=== PATIENT | female | born 1965 | race African-American/Black ===

== ENCOUNTER 2016-10-18 10:24 | Emergency (ER) | payer OTHER ==
[2016-10-18 11:03] VITALS: BMI 47.7
--- NOTE | 2016-10-18 11:03 | PDOC ---
Attending Attestation - Resident Resident Name: Emeka Young - ED Attending Attestation I have performed the following: I have examined & evaluated the patient, The case was reviewed & discussed with the resident, I agree w/resident's findings & plan, Exceptions are as noted - HPI HPI: 51 yo F history HIV, asthma, MICHAEL, HTN, lumbar herniated discs presents with 3 day history of progressively worsening RLQ abd pain radiating to groin and upper thigh. She states that thte pain is sharp, worse with twisting movements of torso, weight bearing on the R leg, and movement of the leg. Denies GI symptoms- no N/V/D. No f/c, no recent illness. She denies any pain in the buttocks. No numbness or weakness in the extremities. No prior similar symptoms. No recent trauma. - Physicial Exam PE: GENERAL: Awake, alert, and fully oriented, in no acute distress. Appears uncomfortable. HEAD: No signs of trauma EYES: PERRLA, EOMI, sclera anicteric, conjunctiva clear ENT: Auricles normal inspection, hearing grossly normal, nares patent, oropharynx clear without exudates. Moist mucosa NECK: Normal ROM, supple, no lymphadenopathy, JVD, or masses LUNGS: Breath sounds equal, clear to auscultation bilaterally. No wheezes, and no crackles HEART: Regular rate and rhythm, normal S1 and S2, no murmurs, rubs or gallops ABDOMEN: Soft, +RLQ tenderness with guarding, normoactive bowel sounds. No guarding, no rebound. No masses. Also with R groin/upper thigh tenderness EXTREMITIES: Normal range of motion, no edema. No clubbing or cyanosis. No cords , erythema, or tenderness NEUROLOGICAL: Cranial nerves II through XII grossly intact. Normal speech, normal gait SKIN: Warm, Dry, normal turgor, no rashes or lesions noted. - Medical Decision Making Etiology of pain is unclear. DDx includes lumbar radiculopathy, acute appendicitis (with psoas sign), nephrolithiasis, RLE DVT, or possibly a femoral hernia. Will obtain labs, DVT study, and CT abd to further evaluate.
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
[2016-10-18] MEDS ORDERED: morphine CARPU-JECT 4 MG/1 ML DISP.SYRIN IVPUSH ONE (11:36)
[2016-10-18] MEDS ORDERED: morphine CARPU-JECT 4 MG/1 ML DISP.SYRIN ONE (11:53)
[2016-10-18 12:13] LABS: URINE APPEARANCE CLEAR; URINE BILIRUBIN NEGATIVE (NEGATIVE); URINE BLOOD NEGATIVE (NEGATIVE); URINE COLOR LTYELLOW; URINE GLUCOSE (UA) NEGATIVE (NEGATIVE); URINE KETONE NEGATIVE (NEGATIVE); URINE LEUK ESTERASE NEGATIVE (NEGATIVE); URINE NITRITE NEGATIVE (NEGATIVE); URINE PROTEIN NEGATIVE (NEGATIVE); URINE UROBILINOGEN NEGATIVE E.U./dl (0.2-1.0)
[2016-10-18 12:24] LABS: BASOPHIL 0.6 % (0-2.0); EOSINOPHIL 1.5 % (0-4.5); MCH 29.4 pg (25.7-33.7); MCHC 32.1 g/dl (32.0-36.0); MEAN CELL VOLUME 91.6 fl (80-96); MEAN PLT VOLUME 8.3 fl (7.5-11.1); NEUTROPHILS 59.9 % (42.8-82.8); PLATELET COUNT 253 K/MM3 (134-434); RDW 16.9 % (11.6-15.6); WHITE BLOOD COUNT 8.3 K/mm3 (4.0-10.0)
[2016-10-18 12:40] LABS: ALBUMIN 3.8 g/dl (3.4-5.0); ALK PHOS 84 U/L (45-117); ANION GAP 7 (8-16); BILIRUBIN,TOTAL 0.3 mg/dL (0.2-1.0); CALCIUM 8.3 mg/dL (8.5-10.1); CO2 28 mmol/L (21-32); COCKROFT - GAULT 136.9775; CREATININE 0.9 mg/dL (0.55-1.02); GLUCOSE,RANDOM 120 mg/dL (74-106); SGOT/AST 12 U/L (15-37); SGPT/ALT 17 U/L (12-78); TOT PROT 7.7 g/dl (6.4-8.2)
[2016-10-18 15:35] VITALS: BP 101/53; PULSE 84; TEMP 98.1
== END 2016-10-18 16:00 | disposition home or self-care (01) ==
LOC: JER 10:24
PROC: 3E033NZ Introduction of Analgesics, Hypnotics, Sedatives into Peripheral Vein, Percutaneous Approach (ICD-10-PCS; principal; 2016-10-18)
DX: R10.31 Right lower quadrant pain (principal); I10 Essential (primary) hypertension; J45.909 Unspecified asthma, uncomplicated; M51.26 Other intervertebral disc displacement, lumbar region; Z21 Asymptomatic human immunodeficiency virus [HIV] infection status; F17.210 Nicotine dependence, cigarettes, uncomplicated
CPT/HCPCS: 36415; 74177-TC; 80053; 81003; 85025; 93971-TC; 96374; 99282-25

== ENCOUNTER 2017-08-10 23:10 | Emergency (ER) | payer OTHER ==
[2017-08-10 23:35] VITALS: BP 127/104; PULSE 92; TEMP 98.3; BMI 50.6
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
[2017-08-10] MEDS ORDERED: IBUPROFEN 600 MG TABLET (FP) PO ONE (23:58)
[2017-08-11] MEDS ORDERED: IBUPROFEN 600 MG TABLET (FP) PO ONE (00:08)
== END 2017-08-11 01:21 | disposition home or self-care (01) ==
LOC: JER 23:10
DX: S46.811A Strain of other muscles, fascia and tendons at shoulder and upper arm level, right arm, initial encounter (principal); X50.0XXA Overexertion from strenuous movement or load, initial encounter; Y93.F2 Activity, caregiving, lifting; Y92.038 Other place in apartment as the place of occurrence of the external cause; I10 Essential (primary) hypertension; Z21 Asymptomatic human immunodeficiency virus [HIV] infection status; Z86.59 Personal history of other mental and behavioral disorders; Z87.42 Personal history of other diseases of the female genital tract
CPT/HCPCS: 72050-TC-FY; 99281-25

== ENCOUNTER 2018-05-13 11:18 | Emergency (ER) | payer OTHER ==
[2018-05-13 11:25] VITALS: BP 141/81; PULSE 66; TEMP 98.5; BMI 52.0
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
[2018-05-13] MEDS ORDERED: CEPHALEXIN MONOHYDRATE 500 MG CAPSULE (UD) PO ONE (12:29)
[2018-05-13] MEDS ORDERED: CEPHALEXIN MONOHYDRATE 500 MG CAPSULE (UD) ONE (12:38)
[2018-05-13] MEDS ORDERED: IBUPROFEN 600 MG TABLET (FP) PO ONE ×2 (12:47)
== END 2018-05-13 12:56 | disposition home or self-care (01) ==
LOC: JERFT 11:18
DX: L02.512 Cutaneous abscess of left hand (principal); L03.114 Cellulitis of left upper limb
CPT/HCPCS: 99281-25

== ENCOUNTER 2018-08-27 07:23 | Day surgery (SDC) | payer OTHER ==
[2018-08-26 12:51] VITALS: BMI 48.3
[2018-08-27 09:36] VITALS: TEMP 97
[2018-08-27 10:00] VITALS: PULSE 79
[2018-08-27 10:19] VITALS: BP 122/79
--- NOTE | 2018-08-28 18:34 | PATH ---
Surgical Pathology Report Patient Name: SHIVA SHINE [facility]. Rec. #: [id number] /Age/Gender: 1965 (Age: 53) / F Account: [id number] Location: U-ENDOSCOPY Taken: 08/27/2018 Received: 08/27/2018 Reported: 08/28/2018 Physicians: Silverio Warner M.D. Specimen(s) Received A: BX ILEOCECAL VALVE EROSIONS B: BX PROXIMAL SIGMOID EROSIONS Clinical History Screening colonoscopy Postoperative diagnosis: Erosions at ileocecal valve and proximal sigmoid Final Diagnosis A. ILEOCECAL VALVE, BIOPSY: COLONIC MUCOSA WITH FOCAL ACTIVE COLITIS. SEE COMMENT. B. PROXIMAL SIGMOID COLON, BIOPSY: COLONIC MUCOSA WITH FOCAL EROSION. Comment: Findings are non-specific. Although acute self-limited colitis is a consideration, among other conditions, the possibility of early inflammatory bowel disease cannot be completely excluded. Suggest clinical/radiologic correlation. Electronically Signed Yi White M.D. Gross Description A. Received in formalin, labeled "biopsy ileocecal valve" are 2 moreno, irregular portions of soft tissue averaging 0.2 cm. in greatest dimension. The specimens are submitted in toto in one cassette. B. Received in formalin, labeled "biopsy proximal sigmoid" is a moreno, irregular portion of soft tissue measuring 0.3 cm. in greatest dimension. The specimen is submitted in toto in one cassette. 08/27/2018 saudi08/27/2018
== END 2018-08-27 10:15 | disposition home or self-care (01) ==
LOC: JASU-ENDO 07:23
PROVIDERS: ATTEND Internal Medicine Gastroenterology
PROC: 0DBN8ZX Excision of Sigmoid Colon, Via Natural or Artificial Opening Endoscopic, Diagnostic (ICD-10-PCS; 2018-08-27)
PROC: 0DBC8ZX Excision of Ileocecal Valve, Via Natural or Artificial Opening Endoscopic, Diagnostic (ICD-10-PCS; principal; 2018-08-27 08:00)
DX: Z12.11 Encounter for screening for malignant neoplasm of colon (principal); K63.3 Ulcer of intestine
CPT/HCPCS: 84703; 88305-TC

== ENCOUNTER 2018-10-26 09:48 | Emergency (ER) | payer OTHER ==
[2018-10-26 10:07] VITALS: BP 123/81; PULSE 83; TEMP 98.2; BMI 47.7
[2018-10-26] MEDS ORDERED: CYCLOBENZAPRINE HCL 10 MG TABLET (FP) PO ONE (11:01)
[2018-10-26] MEDS ORDERED: CYCLOBENZAPRINE HCL 10 MG TABLET (FP) ONE (11:06)
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
== END 2018-10-26 11:12 | disposition home or self-care (01) ==
LOC: JERFT 09:48
DX: M54.5 Low back pain (principal); H92.01 Otalgia, right ear; G89.29 Other chronic pain; I10 Essential (primary) hypertension; E78.5 Hyperlipidemia, unspecified; Z21 Asymptomatic human immunodeficiency virus [HIV] infection status
CPT/HCPCS: 99281-25

== ENCOUNTER 2018-12-21 18:22 | Emergency (ER) | payer OTHER ==
--- NOTE | 2018-12-21 18:38 | PDOC ---
Rapid Medical Evaluation Time Seen by Provider: 12/21/18 18:34 Medical Evaluation: Allergies Allergy/AdvReac Type Severity Reaction Status Date / Time No Known Allergies Allergy Verified 10/26/18 10:04 12/21/18 18:34 This patient had brief in-person evaluation in triage cc: s/p fall complaining of pain to right hip and back after losing her balance yesterday while walking on the street. Denies head strike PE: NAD unlabored breathing received in wheelchair orders: hip xray This patient will proceed to the Ed for further evaluation Discharge Disposition - Diagnosis Hip pain - Referrals - Patient Instructions - Post Discharge Activity
[2018-12-21 18:40] VITALS: BP 117/71; PULSE 86; TEMP 98.4; BMI 49.5
[2018-12-21] MEDS ORDERED: LIDOCAINE 5% TOPICAL PATCH TP ONE (19:43)
[2018-12-21] MEDS ORDERED: KETOROLAC TROMETHAMINE 60 MG/2 ML VIAL IM ONE (19:43)
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
[2018-12-21] MEDS ORDERED: LIDOCAINE 5% TOPICAL PATCH ONE (19:58)
[2018-12-21] MEDS ORDERED: KETOROLAC TROMETHAMINE 60 MG/2 ML VIAL ONE (19:58)
[2018-12-21] MEDS ORDERED: LIDOCAINE PATCH REMOVAL MC SCH (22:00)
== END 2018-12-21 20:13 | disposition home or self-care (01) ==
LOC: JERFT 18:22
PROC: 3E0233Z Introduction of Anti-inflammatory into Muscle, Percutaneous Approach (ICD-10-PCS; principal; 2018-12-21)
DX: M54.41 Lumbago with sciatica, right side (principal); I10 Essential (primary) hypertension; E78.00 Pure hypercholesterolemia, unspecified; J45.909 Unspecified asthma, uncomplicated; F17.210 Nicotine dependence, cigarettes, uncomplicated
CPT/HCPCS: 73523-TC-FY; 96372; 99281-25

== ENCOUNTER → 2019-03-02 | Outpatient (CLI) | payer OTHER | LOC: YHH 10:18 ==

== ENCOUNTER 2019-05-25 14:42 | Emergency (ER) | payer OTHER ==
[2019-05-25] MEDS ORDERED: DIPHTH,PERTUSS(ACELL),TET 0.5 ML DISP.SYRIN IM ONE ×2 (14:55→15:31)
--- NOTE | 2019-05-25 14:55 | PDOC ---
Rapid Medical Evaluation Time Seen by Provider: 05/25/19 14:52 Medical Evaluation: Allergies Allergy/AdvReac Type Severity Reaction Status Date / Time No Known Allergies Allergy Verified 10/26/18 10:04 05/25/19 14:53 I have performed a brief in-person evaluation of this patient. The patient presents with a chief complaint of: foot injury, ?fb, twisted lower back Pertinent physical exam findings:stable and in NAD, non-focal I have ordered the following:tdap, xray The patient will proceed to the ED for further evaluation.
[2019-05-25 14:56] VITALS: BP 131/82; PULSE 82; TEMP 97.4; BMI 49.6
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
[2019-05-25] MEDS ORDERED: KETOROLAC TROMETHAMINE 60 MG/2 ML VIAL IM ONE (15:34)
[2019-05-25] MEDS ORDERED: KETOROLAC TROMETHAMINE 60 MG/2 ML VIAL ONE (15:35)
== END 2019-05-25 16:59 | disposition home or self-care (01) ==
LOC: JERFT 14:42
PROC: 3E0233Z Introduction of Anti-inflammatory into Muscle, Percutaneous Approach (ICD-10-PCS; principal; 2019-05-25)
PROC: 3E0234Z Introduction of Serum, Toxoid and Vaccine into Muscle, Percutaneous Approach (ICD-10-PCS; 2019-05-25)
DX: S99.822A Other specified injuries of left foot, initial encounter (principal); M76.72 Peroneal tendinitis, left leg; M54.5 Low back pain; G89.29 Other chronic pain; W22.8XXA Striking against or struck by other objects, initial encounter; Y93.89 Activity, other specified; Y92.89 Other specified places as the place of occurrence of the external cause; Y99.8 Other external cause status; I10 Essential (primary) hypertension; E11.9 Type 2 diabetes mellitus without complications; Z79.84 Long term (current) use of oral hypoglycemic drugs; E78.5 Hyperlipidemia, unspecified; F17.210 Nicotine dependence, cigarettes, uncomplicated; E66.01 Morbid (severe) obesity due to excess calories; Z68.42 Body mass index [BMI] 45.0-49.9, adult; Z21 Asymptomatic human immunodeficiency virus [HIV] infection status; Z86.19 Personal history of other infectious and parasitic diseases; Z86.59 Personal history of other mental and behavioral disorders
CPT/HCPCS: 73630-TC-LT; 90471; 90715; 96372; 99281-25

== ENCOUNTER 2019-08-18 09:29 | Day surgery (SDC) | payer OTHER ==
[2019-07-19 16:51] VITALS: BMI 49.1
[2019-08-18] MEDS ORDERED: PROPOFOL 20 ML ONE ×2 (10:41→11:04)
[2019-08-18] MEDS ORDERED: MIDAZOLAM HCL 2 MG/2 ML SINGLE DOSE VIAL ONE ×3 (10:41→11:03)
[2019-08-18] MEDS ORDERED: ONDANSETRON 4 MG/2 ML VIAL ONE (10:47)
[2019-08-18] MEDS ORDERED: ceFAZolin SODIUM 1 GM VIAL ONE (10:47)
[2019-08-18] MEDS ORDERED: LIDOCAINE HCL 2% (20ML MULTI-DOSE VIAL) ONE (11:04)
[2019-08-18] MEDS ORDERED: LIDOCAINE HCL 2% (50ML VIAL) INF ONE (11:05)
[2019-08-18] MEDS ORDERED: oxyCODONE HCL 5 MG TABLET PO PRN (11:55)
[2019-08-18] MEDS ORDERED: ONDANSETRON 4 MG/2 ML VIAL IVPUSH PRN (11:55)
[2019-08-18] MEDS ORDERED: LACTATED RINGERS SOLUTION 1,000 ML IV SCH (12:00)
[2019-08-18 12:17] VITALS: PULSE 89; TEMP 98
[2019-08-18 12:27] VITALS: BP 121/73
[2019-08-18] MEDS ORDERED: ACETAMINOPHEN 325 MG TABLET (FP) ONE (12:28)
[2019-08-18] MEDS ORDERED: ACETAMINOPHEN 325 MG TABLET (FP) PO ONE (12:31)
--- NOTE | 2019-08-19 08:48 | OP ---
DATE OF OPERATION: 08/18/2019 PREOPERATIVE DIAGNOSIS: Right carpal tunnel syndrome. POSTOPERATIVE DIAGNOSIS: Right carpal tunnel syndrome. OPERATIVE PROCEDURE: Right carpal tunnel release. ANESTHESIA: Local with sedation. COMPLICATIONS: None. ESTIMATED BLOOD LOSS: Minimal. INDICATION FOR PROCEDURE: The patient is a 54-year-old female with the above finding indicated for operative treatment. Risks, benefits, alternatives were discussed with patient at length. Proper informed consent was obtained. PROCEDURE: After proper identification of patient and correct operative site patient brought to the operating room, placed supine on the operating table with all prominences well padded. Sedation and local anesthesia were given. Right upper extremity was prepped and draped in the usual sterile fashion. Well-padded tourniquet was placed over the sterile prep. Esmarch bandage used to exsanguinate the right upper extremity. Tourniquet was inflated to 250 mmHg. Longitudinal incision made over the proximal aspect of the palm. Incision was taken sharply through the skin, with blunt and sharp dissection through subcutaneous tissue. Palmar fascia was divided longitudinally. Transverse carpal ligament was divided longitudinally along with the distal 4 cm of the antebrachial fascia under direct visualization with loupe magnification. This provided complete release of the median nerve at the wrist. Wound was irrigated with saline and repaired with 5-0 plain gut suture. Sterile dressings were applied. Patient was reversed from anesthesia and bought to the recovery room in stable condition. She tolerated procedure well. CAM ISLAS M.D. [id number]
== END 2019-08-18 12:31 | disposition home or self-care (01) ==
LOC: FASU 09:29
PROVIDERS: ATTEND Orthopaedic Surgery Hand Surgery
PROC: 01N50ZZ Release Median Nerve, Open Approach (ICD-10-PCS; principal; 2019-08-18 11:02)
DX: G56.01 Carpal tunnel syndrome, right upper limb (principal)
CPT/HCPCS: 82962

== ENCOUNTER 2020-03-09 08:36 | Emergency (ER) | payer OTHER ==
[2020-03-09 08:50] VITALS: BP 117/64; PULSE 91; TEMP 98.5; BMI 47.2
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
[2020-03-09 09:54] LABS: BASO % 0.6 % (0-2.0); HEMATOCRIT 39.7 % (32.4-45.2); LYMPH % 35.1 % (8-40); MCH 30.6 pg (25.7-33.7); MCHC 32.7 g/dl (32.0-36.0); MEAN CELL VOLUME 93.8 fl (80-96); MEAN PLT VOLUME 8.2 fl (7.5-11.1); MONO % 5.7 % (3.8-10.2); NEUT % 56.6 % (42.8-82.8); PLATELET COUNT 256 K/MM3 (134-434); RBC 4.23 M/mm3 (3.60-5.2); RDW 15.6 % (11.6-15.6); WHITE BLOOD COUNT 9.4 K/mm3 (4.0-10.0)
[2020-03-09 10:25] LABS: ALBUMIN 3.8 g/dl (3.4-5.0); ALK PHOS 105 U/L (45-117); ANION GAP 7 MMOL/L (8-16); BILIRUBIN,TOTAL 0.5 mg/dL (0.2-1); BLOOD UREA NITROGEN 15.8 mg/dL (7-18); CALCIUM 9.1 mg/dL (8.5-10.1); CHLORIDE 108 mmol/L (98-107); CO2 28 mmol/L (21-32); CREATININE 1.3 mg/dL (0.55-1.3); GLUCOSE,RANDOM 192 mg/dL (74-106); POTASSIUM 4.1 mmol/L (3.5-5.1); SGOT/AST 16 U/L (15-37); SGPT/ALT 19 U/L (13-61); SODIUM 142 mmol/L (136-145); TOT PROT 7.6 g/dl (6.4-8.2)
[2020-03-09] MEDS ORDERED: CYCLOBENZAPRINE HCL 10 MG TABLET (FP) PO ONE (10:26)
[2020-03-09] MEDS ORDERED: ACETAMINOPHEN 325 MG TABLET (FP) PO ONE (10:26)
[2020-03-09] MEDS ORDERED: KETOROLAC TROMETHAMINE 60 MG/2 ML VIAL IM ONE (10:27)
[2020-03-09] MEDS ORDERED: ACETAMINOPHEN 325 MG TABLET (FP) ONE (10:30)
[2020-03-09] MEDS ORDERED: CYCLOBENZAPRINE HCL 10 MG TABLET (FP) ONE (10:30)
[2020-03-09] MEDS ORDERED: KETOROLAC TROMETHAMINE 30 MG/1 ML VIAL ONE (10:31)
--- NOTE | 2020-03-09 15:26 | EKG ---
Test Reason : Blood Pressure : / mmHG Vent. Rate : 079 BPM Atrial Rate : 079 BPM P-R Int : 174 ms QRS Dur : 072 ms QT Int : 402 ms P-R-T Axes : 063 027 020 degrees QTc Int : 460 ms NORMAL SINUS RHYTHM POSSIBLE LEFT ATRIAL ENLARGEMENT CANNOT RULE OUT ANTERIOR INFARCT , AGE UNDETERMINED ABNORMAL ECG WHEN COMPARED WITH ECG OF 04-AUG-2018 12:30, NONSPECIFIC T WAVE ABNORMALITY NOW EVIDENT IN ANTERIOR LEADS Confirmed by MALIKA GONZALEZ, ANNIKA ([id number]) on 03/09/2020 3:26:33 PM Referred By: Confirmed By:ANNIKA DALY MD
== END 2020-03-09 11:07 | disposition home or self-care (01) ==
LOC: JER 08:36
PROC: 3E0233Z Introduction of Anti-inflammatory into Muscle, Percutaneous Approach (ICD-10-PCS; principal; 2020-03-09)
DX: M25.512 Pain in left shoulder (principal); R55 Syncope and collapse
CPT/HCPCS: 36415; 73030-TC-LT-FY; 80053; 82550; 84484; 85025; 93005; 93010; 99285-25